=== PATIENT | female | born 1995 | race Caucasian/White ===

== ENCOUNTER 2025-05-05 22:08 | Observation (INO) | payer SELFPAY ==
[2025-05-05] VITALS (17 sets, daily range): BP systolic 99–106; BP diastolic 54–55; PULSE 67–79; RESP 14–99; TEMP 36.8; O2SAT 89–99; BMI 25.4
--- NOTE | 2025-05-05 22:46 | XR_ITS ---
Examination: Complete OB ultrasound greater than 14 weeks Date and time of exam: May 05, 2025, 11:04 p.m. INDICATIONS: Patient fell today, pelvic pain Findings: Viable intrauterine single fetus with single amniotic sac presentation cephalic Cardiac motion 153 bpm Placenta posterior grade 1. Umbilical cord insertion seen Largest amniotic fluid pocket 2.9 cm Cervix 2.6 cm Ovaries obscured by bowel gas. Composite estimated gestational age based on BPD, head circumference, abdominal circumference, femur length is 27 weeks 3 days Estimated weight 1033.9 g. Survey of intracranial anatomy, spinal anatomy, abdominal anatomy, four-chamber heart performed with no abnormalities identified. Impression: Viable intrauterine gestation cephalic presentation.
== END 2025-05-05 23:47 | disposition home or self-care (01) ==
PROVIDERS: Admitting Provider Obstetrics & Gynecology; Visit Provider Obstetrics & Gynecology
DX: Z34.82 Encounter for supervision of other normal pregnancy, second trimester (principal); Z3A.27 27 weeks gestation of pregnancy
CPT/HCPCS: 59025; 59899; 76805

== ENCOUNTER 2025-05-13 12:21 | Observation (INO) | payer BC, SELFPAY ==
[2025-05-13 12:27] VITALS: BP 123/67; PULSE 81
--- NOTE | 2025-05-13 12:29 | XR_ITS ---
Examination: OB Transvaginal ultrasound of the pelvis, limited Technique: Transvaginal sonographic images pelvis performed using starks scale imaging Exam date and time: May 13, 2025, 1317 hours INDICATIONS: Leaking amniotic fluid today FINDINGS: Cervix 4.5 cm IMPRESSION: Cervix 4.5 cm.
[2025-05-13 12:43] VITALS: BP 123/67; PULSE 81; RESP 18; RESP 99; TEMP 36.7; BMI 24.9
[2025-05-13 12:50] LABS: ROM Swab Mixed By: SAUCT; Swb Mxed in Solvent 1 min? Yes
[2025-05-13 12:57] LABS: Rupture of Fetal Membranes Negative (Negative)
[2025-05-13 13:55] LABS: Collection Type, Urine Clean Catch
[2025-05-13 14:03] LABS: Bacteria,Urine Rare; Bilirubin,Urine Negative (Negative); Blood,Urine Negative (Negative); Clarity,Urine Clear (Clear/Hazy); Color,Urine Lt-Yellow (Lt Yel-Yel); Glucose, Urine Negative (Negative); Ketones,Urine Negative (Negative); Leukocyte Esterase,Urine Negative (Negative); Nitrite,Urine Negative (Negative); PH,Urine 6.0 (5.0-7.0); Protein,Urine Negative (Neg - Trace); RBC,Urine 2 /hpf (0-3); Specific Gravity,Urine 1.013 (1.001-1.035); Squamous Epithelial Cell,Urine 2 /hpf (0-5); Urobilinogen,Urine Negative mg/dL (0.0-1.0); WBC,Urine 6 /hpf (0-5)
[2025-05-13 14:10] LABS: FFN Specimen Descripton Clr Colrless Aqueous; Fetal Fibronectin Negative (Negative)
--- NOTE | 2025-05-13 14:14 | XR_ITS ---
Examination: Complete OB ultrasound greater than 14 weeks Date and time of exam: May 13, 2025, 1533 hours INDICATIONS: Leaking amniotic fluid today Findings: Viable intrauterine single fetus with single amniotic sac presentation cephalic Cardiac motion 141 bpm Placenta posterior grade 1 Umbilical cord insertion seen Amniotic fluid index 9.3 cm Ovaries obscured by bowel gas as well as cervix. Composite estimated gestational age based on BPD, head circumference, abdominal circumference, femur length is 28 weeks 3 days Estimated weight 1171.5 g. Survey of intracranial anatomy, spinal anatomy, abdominal anatomy, four-chamber heart performed with no abnormalities identified. Impression: Viable intrauterine gestation cephalic presentation Amniotic fluid index 9.3 cm.
== END 2025-05-13 16:15 | disposition home or self-care (01) ==
LOC: S4SX 12:21 → S4NX 12:34 → S4SX 12:35
PROVIDERS: Admitting Provider Specialist; Visit Provider Specialist
DX: Z34.83 Encounter for supervision of other normal pregnancy, third trimester (principal); Z3A.28 28 weeks gestation of pregnancy
CPT/HCPCS: 59025; 59899; 76805; 76817; 81001; 82731; 84112; 87086